=== PATIENT | female | born 1940 | race Caucasian/White ===

== ENCOUNTER 2017-04-22 08:00 | Outpatient (CLI) | payer MEDICARE, BC | END 2017-04-22 08:01 | disposition home or self-care (01) | LOC: BICMAMMO 08:00 | PROVIDERS: ATTEND Obstetrics & Gynecology | DX: Z12.31 Encounter for screening mammogram for malignant neoplasm of breast (principal); Z13.820 Encounter for screening for osteoporosis | CPT/HCPCS: 77063; 77080 ==

== ENCOUNTER 2018-06-24 13:56 | Outpatient (CLI) | payer MEDICARE, BC | END 2018-06-24 13:57 | disposition home or self-care (01) | LOC: BICMAMMO 13:56 | PROVIDERS: ATTEND Obstetrics & Gynecology | DX: Z12.31 Encounter for screening mammogram for malignant neoplasm of breast (principal); Z85.3 Personal history of malignant neoplasm of breast; Z85.820 Personal history of malignant melanoma of skin; Z80.3 Family history of malignant neoplasm of breast | CPT/HCPCS: 77063; 77067 ==

== ENCOUNTER 2019-03-18 13:52 | Outpatient (CLI) | payer MEDICARE, BC ==
--- NOTE | 2019-03-19 07:31 | RAD ---
XR Lumbar Spine Min 4 View History: Low back pain Comparison: Lumbar spine MRI 2016 Findings: 5 nonrib-bearing lumbar type vertebrae. No acute fracture or malalignment. 2 mm L5 over S1 anterolisthesis due to high-grade facet arthrosis. Moderate to L4/L5 facet arthropathy. Moderate L3/L4 facet arthropathy. Abnormal narrowing of the L2-L5 interspinous space with cortical sclerosis and subcortical cysts. Moderate right and mild left SI joint degenerative disease. Right upper quadrant surgical clips. Impression: Moderate spondylosis. No acute osseous abnormality.
--- NOTE | 2019-03-19 07:32 | RAD ---
XR Cervical Spine 4 View Min History: Neck pain Comparison: None. Findings: There is moderate narrowing of the C1/C2 articulation, greater on the right, on the open-mo uth odontoid view. Mandible appears be intact. Advanced C3/C4 degenerative disc space narrowing. Moderate C4/C5 narrowing. Advanced C5/C6 disc space narrowing. Degenerative 3 mm C3 over C4 and 2 mm C4 over C5 retrolisthesis. Mild translation with flexion and ex tension. Moderate calcifications of the left carotid bulb. Impression: Degenerative multilevel retrolisthesis as described with mild translation with flexion an d extension.
== END 2019-03-18 13:53 | disposition home or self-care (01) ==
LOC: BICRAD 13:52
PROVIDERS: ATTEND Neurological Surgery
DX: M54.5 Low back pain (principal); M54.2 Cervicalgia; M47.816 Spondylosis without myelopathy or radiculopathy, lumbar region; M43.16 Spondylolisthesis, lumbar region
CPT/HCPCS: 72050; 72110

== ENCOUNTER 2019-04-09 13:09 | Outpatient (CLI) | payer MEDICARE, BC ==
--- NOTE | 2019-04-09 14:08 | MRI ---
MRI LUMBAR SPINE NONCONTRAST: HISTORY: Right leg pain. Right hip pain. Lumbar radiculopathy. COMPARISON: 06/08/2015. FINDINGS: Stable heterogeneous marrow signal intensity lumbar vertebra. Lumbar spine vertebral body height is m aintained. There is no fracture. No significant STIR hyperintensity to suggest vertebral body edema or ligamentous injury. Symmetric signal intensity of the paraspinal muscles. T2 hyperintensities in the left and right renal cortex and left or right renal pelvis compatible with cystic lesions. Conus medullaris terminates at the superior aspect of L1. T12-L1:Minimal generalized disc bulge without significant central canal stenosis or significant neura l foraminal narrowing. L1-L2:Adequate disc hydration. No significant central canal stenosis or significant neural foraminal narrowing. L2-L3:Adequate disc hydration. No significant central canal stenosis or significant neural foraminal narrowing. Synovial cysts posterior to the left facet at L2-L3. L3-L4:Adequate disc hydration. No significant posterior disc abdomen body. No significant central can al stenosis. Mild ligament flavum thickening and facet hypertrophy. Mild bilateral neural foraminal narrowing. L4-L5:Adequate disc hydration. No significant posterior disc abnormality. Broad-based disc bulge with out significant central canal stenosis. Bilateral facet hypertrophy and ligamentum flavum thickening. Bilaterally the neural foramina are patent. L5-S1:Mild loss of disc space height. There is abnormal fluid signal intensity in the disc suggesting possible intradiscal injury with associated annular fissure along the posterior margin of the annulus. A small central disc protrusion does make contact with the ventral thecal sac. No significan t central canal stenosis. Mild bilateral foraminal narrowing. Spondylolisthesis: L1-L2: 2.5 mm retrolisthesis. L5-S1: 4.7 mm of anterolisthesis. T12-L1: 1.7 mm of retrolisthesis. IMPRESSION: 1. Spondylolisthesis as described above. 2. Degenerative changes of the lumbar spine as described above. Persistent abnormal signal intensity involving the L5-S1 disc. The possibility of a small posterior midline annular fissure cannot be excluded.
== END 2019-04-09 13:10 | disposition home or self-care (01) ==
LOC: TBSIIMAG 13:09
PROVIDERS: ATTEND Neurological Surgery
DX: M47.26 Other spondylosis with radiculopathy, lumbar region (principal); M43.16 Spondylolisthesis, lumbar region
CPT/HCPCS: 72148

== ENCOUNTER 2019-07-05 10:22 | Outpatient (CLI) | payer MEDICARE, BC ==
--- NOTE | 2019-07-06 14:39 | MMO ---
Bilateral MAMMO Bilat Diag [facility]. CLINICAL HISTORY: Patient is 78 years old and is seen for diagnostic exam and lump or thickening in the left breast. The patient has the following family history of breast cancer: sister, malignant (generic) and 2 aunts, malignant (generic). The patient has a history of malignant (generic) in the left breast 1998 and Skin cancer. The patient has a history of left Lumpectomy in 1998 - malignant and right Excisional Biopsy in - benign. VIEWS: The views performed were: bilateral craniocaudal with tomosynthesis; bilateral mediolateral oblique with tomosynthesis; and bilateral mediolateral with tomosynthesis. FILMS COMPARED: The present examination has been compared to prior imaging studies performed at [facility] on 04/07/2015, 04/08/2016, 04/22/2017 and 06/24/2018. This study has been interpreted with the assistance of computer-aided detection. MAMMOGRAM FINDINGS: There are scattered fibroglandular densities. Finding 1: There is an area of architectural distortion with associated post-surgical scar and biopsy clip seen in the left breast. Finding 2: There are stable benign appearing calcifications seen in both breasts. There are also vascular calcifications. There are no suspicious masses, suspicious calcifications, or new areas of architectural distortion. IMPRESSION: THERE IS NO MAMMOGRAPHIC EVIDENCE OF MALIGNANCY. A ROUTINE FOLLOW-UP MAMMOGRAM IN 1 YEAR IS RECOMMENDED. THE RESULTS OF THIS EXAM WERE SENT TO THE PATIENT. ACR BI-RADS Category 2 - Benign finding MAMMOGRAPHY NOTE: 1. A negative mammogram report should not delay a biopsy if a dominant of clinically suspicious mass is present. 2. Approximately 10% to 15% of breast cancers are not detected by mammography. 3. Adenosis and dense breasts may obscure an underlying neoplasm. Reported by: HEMA COOPER MD Electonically Signed: [id number]
== END 2019-07-05 10:23 | disposition home or self-care (01) ==
LOC: BICMAMMO 10:22
PROVIDERS: ATTEND Internal Medicine
DX: N63.20 Unspecified lump in the left breast, unspecified quadrant (principal)
CPT/HCPCS: 77066; G0279

== ENCOUNTER 2019-12-16 14:16 | Outpatient (CLI) | payer MEDICARE, BC ==
--- NOTE | 2019-12-16 15:09 | RAD ---
CERVICAL SPINE FOUR VIEWS: 12/16/19 INDICATION: Cervical radiculopathy. COMPARISON: Prior exam dated 03/18/19. FINDINGS: There is slight retrolisthesis of C3 on C4 and C4 on C5 which likely reduces with flexion and appears accentuated with extension. There are vascular calcifications of the left carotid body. There is mul tilevel disc degenerative facet osteoarthritic change. Prevertebral soft tissues are normal appearing . Lung apices are clear. IMPRESSION: 1. Mild retrolisthesis of C3 on C4 and C4 on C5 that slightly reduces with flexion and is somewh at accentuated with extension. 2. Mild to moderate cervical spondylosis stable to the prior exam. POS: [facility]
--- NOTE | 2019-12-16 15:12 | RAD ---
LUMBAR SPINE 4 VIEWS: INDICATION: Lumbar radiculopathy. COMPARISON: Prior exam dated 03/18/2019. FINDINGS: There is dextroscoliosis of the thoracolumbar spine. There is mild multilevel degenerative disk dise ase. There is moderate to severe facet osteoarthrosis at L4-5 and L5-S1. There is mild retrolisthes is of L1-L2 which is stable with flexion and extension. There is mild anterolisthesis of L4 on L5 th at has no translational motion on the flexion and extension radiographs. There are vascular calcific ations seen involving the abdominal aorta. Surgical clips are seen within the right upper quadrant. IMPRESSION: Mild to moderate lumbar spondylosis without abnormal translational motion. POS: [facility]
== END 2019-12-16 14:17 | disposition home or self-care (01) ==
LOC: BICRAD 14:16
PROVIDERS: ATTEND Neurological Surgery
DX: M47.26 Other spondylosis with radiculopathy, lumbar region (principal); M47.22 Other spondylosis with radiculopathy, cervical region; M43.12 Spondylolisthesis, cervical region
CPT/HCPCS: 72050; 72110

== ENCOUNTER 2020-07-25 12:30 | Outpatient (CLI) | payer MEDICARE, BC | END 2020-07-25 12:31 | disposition home or self-care (01) | LOC: BICMAMMO 12:30 | PROVIDERS: ATTEND Internal Medicine | DX: Z12.31 Encounter for screening mammogram for malignant neoplasm of breast (principal); Z80.3 Family history of malignant neoplasm of breast; Z85.3 Personal history of malignant neoplasm of breast; Z85.828 Personal history of other malignant neoplasm of skin; Z98.890 Other specified postprocedural states | CPT/HCPCS: 77063; 77067 ==

== ENCOUNTER 2020-12-21 10:40 | Outpatient (CLI) | payer MEDICARE, BC ==
[2020-12-21 11:45] LABS: #Monocytes 0.5 10x3/uL (0.0-1.1); #Neutrophils 3.6 10x3/uL (1.5-8.4); %Basophils 0.2 % (0.0-2.0); %Lymphocytes 23.1 % (18.0-47.0); %Monocytes 9.6 % (0.0-10.0); %Neutrophils 66.7 % (40.0-75.0); Mean Corpuscular HGB CONC 31.9 g/dL (32.0-36.0); Mean Corpuscular Hemoglobin 26.5 pg (27.0-33.0); Mean Platelet Volume 9.7 fl (7.4-10.4); Platelet Count 196 10x3/uL (150-450); Red Blood Cell (RBC) Count 4.53 10x6/uL (3.90-5.03); White Blood Cell (WBC) Count 5.4 10x3/uL (3.5-10.5)
[2020-12-21 12:16] LABS: ALT (SGPT) 19 U/L (8-55); AST (SGOT) 26 U/L (5-34); Albumin 3.9 g/dL (3.4-4.8); Alkaline Phosphatase 95 U/L (40-110); Anion Gap 13 mmol/L (10-20); BUN (Urea Nitrogen) 13 mg/dL (9.8-20.1); Bilirubin, Total 0.5 mg/dL (0.2-1.2); Calc. Creatinine Clearance 0 mL/min (70-130); Calcium 9.9 mg/dL (7.8-10.44); Carbon Dioxide 30 mmol/L (23-31); Chloride 101 mmol/L (98-107); Globulin 2.6 g/dL (2.4-3.5); Glucose 92 mg/dL (83-110); Potassium 4.2 mmol/L (3.5-5.1); Protein, Total 6.5 g/dL (5.8-8.1); Sodium 140 mmol/L (136-145)
[2020-12-21 20:55] LABS: SARS-CoV-2 PCR by NAA Not Detected (NotDetected)
== END 2020-12-21 10:41 | disposition home or self-care (01) ==
LOC: LABBT 10:40
PROVIDERS: ATTEND Orthopaedic Surgery
DX: Z01.812 Encounter for preprocedural laboratory examination (principal); M17.11 Unilateral primary osteoarthritis, right knee; Z20.822 Contact with and (suspected) exposure to COVID-19
CPT/HCPCS: 80053; 85025; U0003; U0005

== ENCOUNTER 2021-02-15 12:47 | Outpatient (CLI) | payer MEDICARE, BC ==
[2021-02-15 14:40] LABS: #Monocytes 0.6 10x3/uL (0.0-1.1); #Neutrophils 3.3 10x3/uL (1.5-8.4); %Basophils 0.2 % (0.0-2.0); %Lymphocytes 25.8 % (18.0-47.0); %Monocytes 10.7 % (0.0-10.0); %Neutrophils 62.7 % (40.0-75.0); Hemoglobin 11.5 g/dL (12.0-15.5); Mean Corpuscular Hemoglobin 26.4 pg (27.0-33.0); Mean Corpuscular Volume 85.1 fl (81.6-98.3); Mean Platelet Volume 10.2 fl (7.4-10.4); Platelet Count 211 10x3/uL (150-450); RBC Distribution Width 13.9 % (11.5-14.5); Red Blood Cell (RBC) Count 4.36 10x6/uL (3.90-5.03); White Blood Cell (WBC) Count 5.3 10x3/uL (3.5-10.5)
[2021-02-15 15:00] LABS: Prothrombin Time 10.4 sec (9.5-12.1)
[2021-02-15 15:12] LABS: Anion Gap 16 mmol/L (10-20); BUN (Urea Nitrogen) 19 mg/dL (9.8-20.1); Calc. Creatinine Clearance 0 mL/min (70-130); Calcium 10.1 mg/dL (7.8-10.44); Carbon Dioxide 29 mmol/L (23-31); Chloride 99 mmol/L (98-107); Glucose 80 mg/dL (83-110); Potassium 4.5 mmol/L (3.5-5.1); Sodium 139 mmol/L (136-145)
[2021-02-15 15:25] LABS: Bilirubin Neg (Negative); Blood, Urine Negative (Negative); Clarity Clear (Clear); Glucose, Urine (Dipstick) Normal (Negative); Ketone, Urine Negative (Negative); Leukocyte Negative (Negative); Nitrite Negative (Negative); Protein, Urine (Dipstick) Negative (Neg-Trace); Specific Gravity, Urine 1.005 (1.002-1.036); Urobilinogen Normal mg/dL (Less than 2)
[2021-02-15 15:38] LABS: Bacteria/HPF None Seen HPF (None Seen); RBC/HPF 0-3 HPF (0-3); Squamous Epithelial 0-3 HPF (0-3); WBC/HPF 0-3 HPF (0-3)
[2021-02-16 08:52] LABS: SARS-CoV-2 PCR by NAA Not Detected (NotDetected)
== END 2021-02-15 12:48 | disposition home or self-care (01) ==
LOC: LABBT 12:47
PROVIDERS: ATTEND Orthopaedic Surgery
DX: Z01.812 Encounter for preprocedural laboratory examination (principal); M17.12 Unilateral primary osteoarthritis, left knee; Z20.822 Contact with and (suspected) exposure to COVID-19
CPT/HCPCS: 80048; 81001; 85025; 85610; 87081; U0003; U0005

== ENCOUNTER 2021-02-20 05:43 | Day surgery (SDC) | payer MEDICARE, BC ==
[2021-02-16 14:15] VITALS: BMI 30.9
[2021-02-20] MEDS ORDERED: Tranexamic Acid 1,000 MG/10 ML VIAL ONE (06:07)
[2021-02-20] MEDS ORDERED: Sodium Chloride 0.9% 100 ML ONE (06:07)
[2021-02-20] MEDS ORDERED: Vancomycin 1 GM/200 ML BAG ONE (06:07)
[2021-02-20] MEDS ORDERED: ceFAZolin 2 GM/DEX 5% 100 ML BAG ONE (06:07)
[2021-02-20] MEDS ORDERED: Fentanyl 100 MCG/2 ML VIAL ONE ×4 (07:04→10:43)
[2021-02-20] MEDS ORDERED: Midazolam HCl 2 mg/2 ml Vial ONE (07:04)
[2021-02-20] MEDS ORDERED: Ropivacaine 2% HCl/PF (20 MG/10 ML VIAL) ONE (08:12)
[2021-02-20] MEDS ORDERED: PHENYLEPHRINE-NS 100 MCG/ML 10 ML SYRINGE ONE (08:12)
[2021-02-20] MEDS ORDERED: Ketorolac Tromethamine 30 MG/ML VIAL ONE (08:12)
[2021-02-20] MEDS ORDERED: PROPOFOL 200 MG/20 ML VIAL ONE (08:12)
[2021-02-20] MEDS ORDERED: Bupivacaine HCl 0.5%/Epinephrine 1:200,000/PF 30 ml Vial ONE (08:12)
[2021-02-20] MEDS ORDERED: Ondansetron PF 4 MG/2 ML Vial ONE (08:12)
[2021-02-20] MEDS ORDERED: ePHEDrine 50 MG/ML VIAL ONE (08:12)
[2021-02-20] MEDS ORDERED: Fentanyl 100 MCG/2 ML VIAL IV PRN (08:41)
[2021-02-20] MEDS ORDERED: Ropivacaine 0.2% 550 ML 550 ML NERVE BLCK SCH (08:45)
[2021-02-20] MEDS ORDERED: Promethazine HCl 25 MG/ML VIAL IM PRN (08:45)
[2021-02-20] MEDS ORDERED: Zolpidem Tartrate 5 MG TAB PO PRN (08:45)
[2021-02-20] MEDS ORDERED: traMADol HCl 50 MG TAB PO PRN ×2 (08:45)
[2021-02-20] MEDS ORDERED: Ondansetron PF 4 MG/2 ML Vial IVP PRN (08:45)
[2021-02-20] MEDS ORDERED: HYDROcodone/Acetaminophen 10/325 mg Tablet PO PRN ×2 (08:45)
== END 2021-02-20 13:25 ==
LOC: SDC 05:43
PROVIDERS: ATTEND Orthopaedic Surgery
PROC: 0SRC0J9 Replacement of Right Knee Joint with Synthetic Substitute, Cemented, Open Approach (ICD-10-PCS; principal; 2021-02-20)
PROC: 8E0YXBZ Computer Assisted Procedure of Lower Extremity (ICD-10-PCS; 2021-02-20)
PROC: 3E0T3BZ Introduction of Anesthetic Agent into Peripheral Nerves and Plexi, Percutaneous Approach (ICD-10-PCS; 2021-02-20)
PROC: 3E0T3BZ Introduction of Anesthetic Agent into Peripheral Nerves and Plexi, Percutaneous Approach (ICD-10-PCS; 2021-02-20)
DX: M17.31 Unilateral post-traumatic osteoarthritis, right knee (principal); M54.41 Lumbago with sciatica, right side; I25.10 Atherosclerotic heart disease of native coronary artery without angina pectoris; M19.90 Unspecified osteoarthritis, unspecified site; K21.9 Gastro-esophageal reflux disease without esophagitis; I11.9 Hypertensive heart disease without heart failure; E78.00 Pure hypercholesterolemia, unspecified; Z85.3 Personal history of malignant neoplasm of breast; Z79.899 Other long term (current) drug therapy; Z95.5 Presence of coronary angioplasty implant and graft
CPT/HCPCS: 20985; 27447; 64445; 64448; 73560; 97139; A4306; C1713; C1776; J1885; J2250; J2405; J2704; J2795; J3010; J3370; J3490

== ENCOUNTER 2022-10-30 14:01 | Outpatient (CLI) | payer MEDICARE, BC | END 2022-10-30 14:02 | disposition home or self-care (01) | LOC: BICMRI 14:01 | PROVIDERS: ATTEND Neurological Surgery | DX: M47.12 Other spondylosis with myelopathy, cervical region (principal); M47.26 Other spondylosis with radiculopathy, lumbar region; M50.11 Cervical disc disorder with radiculopathy, high cervical region | CPT/HCPCS: 72141; 72148 ==

== ENCOUNTER 2025-02-10 13:44 | Outpatient (CLI) | payer MEDICARE ==
[2025-02-10] MEDS ORDERED: Iopamidol 370 76% 100 ML VIAL ONE (14:15)
[2025-02-10 14:23] LABS: Estimated GFR - POC 37.0
== END 2025-02-10 13:45 | disposition home or self-care (01) ==
LOC: CT 13:44
PROVIDERS: ATTEND Internal Medicine Gastroenterology
DX: K21.9 Gastro-esophageal reflux disease without esophagitis (principal); R19.4 Change in bowel habit; R10.12 Left upper quadrant pain; D64.9 Anemia, unspecified; N13.30 Unspecified hydronephrosis; R93.422 Abnormal radiologic findings on diagnostic imaging of left kidney; K57.30 Diverticulosis of large intestine without perforation or abscess without bleeding
CPT/HCPCS: 36415; 74177; 82565; Q9967